=== PATIENT | female | born 1990 | race Caucasian/White ===

== ENCOUNTER 2017-10-31 08:20 | Day surgery (SDC) | payer SELFPAY ==
[~2017-10-31 08:20] MED LIST: Acetaminophen/HYDROcodone 325-5 MG Tab PO PRN; Bupivacaine 0.25%/EPINEPHrine 1:200,000 10 ML SDV INJECT ONE; Bupivacaine 25%/EPINEPHrine/PF 30 ML ONE; EPINEPHrine 1 MG/ML SDV ONE; Gentamicin 40 MG/ML 2 ML Vial ONE; Lactated Ringers 1,000 ML IV SCH; ceFAZolin 1 GM Vial ONE; ceFAZolin 2 GM in Premix Bag 1 BAG IV ONE
--- NOTE | 2017-10-31 09:08 | PCM.PREANE ---
Preanesthetic Assessment - Anesthesia/Transfusion/Family Hx Anesthesia History: No Prior Anesthesia Family History of Anesthesia Reaction: No Transfusion History: No Prior Transfusion(s) - Review of Systems General: No Symptoms Pulmonary: No Symptoms Cardiovascular: No Symptoms Gastrointestinal: No Symptoms Neurological: No Symptoms Other: Reports: None - Physical Assessment Height: 1.7 m Weight: 57.153 kg ASA Class: 2 Mental Status: Alert & Oriented x3 Dentition: Reports: Normal Dentition ROM/Head Extension: Full Lungs: Clear to Auscultation, Normal Respiratory Effort Cardiovascular: Regular Rate, Regular Rhythm - Lab Values: Laboratory Last Values Urine HCG, Qual NEGATIVE (NEGATIVE) 10/31/17 08:33 - Allergies Allergies/Adverse Reactions: Allergies Allergy/AdvReac Type Severity Reaction Status Date / Time sulfamethoxazole Allergy Rash Verified 10/25/17 09:02 [From Bactrim] trimethoprim [From Bactrim] Allergy Rash Verified 10/25/17 09:02 - Blood Blood Available: No - Anesthesia Plan Pre-Op Medication Ordered: None - Acknowledgements Anesthesia Type Planned: General Anesthesia Pt an Appropriate Candidate for the Planned Anesthesia: Yes Alternatives and Risks of Anesthesia Discussed w Pt/Guardian: Yes Pt/Guardian Understands and Agrees with Anesthesia Plan: Yes PreAnesthesia Questionnaire HEENT History: Reports: Other (See Below) Other HEENT History: wears glasses/contacts Psychiatric History: Reports: Anxiety, Bipolar, Depression - Past Surgical History Head Surgeries/Procedures: Reports: None - SUBSTANCE USE Smoking Status *Q: Never Smoker Recreational Drug Use History: No - HOME MEDS Home Medications: Home Meds ARIPiprazole [Abilify] 5 mg PO DAILY 10/25/17 [History] Levonorgestrel-Ethin Estradiol [Aviane-28 Tablet] 1 tab PO DAILY 10/25/17 [ History] - CURRENT (IN HOUSE) MEDS Current Meds: Current Medications Hydrocodone Bitart/Acetaminophen ([place] 325-5 Mg) 1 tab PO Q4H PRN PRN Reason: Pain Lactated Ringer's (Ringers, Lactated) 1,000 mls @ 125 mls/hr IV ASDIRECTED BRANT Discontinued Medications Bacitracin (Bacitracin) Confirm Administered Dose 50,000 units .ROUTE .STK-MED ONE Stop: 10/31/17 07:39 Bupivacaine HCl/Epinephrine Bitart (Marcaine 0.25%/Epinephrine 1:200,000) 10 ml INJECT ONETIME ONE Stop: 10/31/17 08:01 Cefazolin Sodium (Ancef) Confirm Administered Dose 1 gm .ROUTE .STK-MED ONE Stop: 10/31/17 07:39 Epinephrine HCl (Adrenalin) Confirm Administered Dose 1 mg .ROUTE .STK-MED ONE Stop: 10/31/17 07:39 Gentamicin Sulfate (Gentamicin) Confirm Administered Dose 80 mg .ROUTE .STK-MED ONE Stop: 10/31/17 07:39 Cefazolin Sodium/Dextrose 2 gm (/ Premix) 50 mls @ 100 mls/hr IV ONETIME ONE Stop: 10/31/17 08:29 Bupivacaine HCl/Epinephrine Bitart (Sensorc Mpf 0.25%-Epi [id number]) Confirm Administered Dose 30 mls @ as directed .ROUTE .STK-MED ONE Stop: 10/31/17 07:18
[2017-10-31] MEDS ORDERED: Rocuronium 10 MG/ML 10 ML Syringe ONE (10:39)
[2017-10-31] MEDS ORDERED: fentaNYL 100 MCG/2 ML SDV ONE ×2 (10:39→11:44)
[2017-10-31] MEDS ORDERED: Ondansetron 4 MG/2 ML SDV ONE ×2 (10:39→10:40)
[2017-10-31] MEDS ORDERED: Propofol 200 MG/20 ML SDV ONE (10:39)
[2017-10-31] MEDS ORDERED: Midazolam 1 MG/ML 2 ML SDV ONE (10:39)
[2017-10-31] MEDS ORDERED: Dexamethasone 4 MG/ML 5 ML MDV ONE (10:40)
[2017-10-31] MEDS ORDERED: Ketorolac 30 MG/ML SDV ONE (10:40)
[2017-10-31] MEDS ORDERED: Sugammadex Sodium 200 MG/2 ML VIAL ONE (10:46)
[2017-10-31] MEDS ORDERED: ceFAZolin 1 GM Vial ONE (10:48)
[2017-10-31] MEDS ORDERED: Sodium Chloride 0.9% 20 ML ONE (10:48)
[2017-10-31] MEDS ORDERED: HYDROmorphone 2 MG/ML SDV ONE (12:44)
--- NOTE | 2017-10-31 13:59 | PCM.POSTAN ---
POST ANESTHESIA ASSESSMENT - MENTAL STATUS Mental Status: Alert - VITAL SIGNS Pulse Rate: 84 SaO2: 99 Resp Rate: 16 Blood Pressure: 113/68 Temperature: 36.8 C - RESPIRATORY Respiratory Status: Respiratory Rate WNL - CARDIOVASCULAR CV Status: Pulse Rate WNL - GASTROINTESTINAL GI Status: No Symptoms - PAIN Pain Score: 2 (sore. Received 1mg Dilaudid upon arrival.) - POST OP HYDRATION Hydration Status: Adequate & Stable (Doing well. Ready for transfer to .)
--- NOTE | 2017-10-31 14:40 | PCM48HPAN ---
Post Anesthesia Note - EVALUATION WITHIN 48HRS OF ANESTHETIC Vital Signs in Normal Range: Yes Patient Participated in Evaluation: Yes Respiratory Function Stable: Yes Airway Patent: Yes Cardiovascular Function Stable: Yes Hydration Status Stable: Yes Pain Control Satisfactory: Yes Nausea and Vomiting Control Satisfactory: Yes Mental Status Recovered: Yes Pulse Rate: 84 SaO2: 98 Resp Rate: 16 Temperature: 36.8 C Blood Pressure: 113/68 Pulse Rate: 84 - COMMENTS/OBSERVATIONS Free Text/Narrative:: Doing well. Ready for discharge.
--- NOTE | 2017-10-31 16:57 | PCM.OPNOTE ---
- General Post-Op/Procedure Note Date of Surgery/Procedure: 10/31/17 Operative Procedure(s): bilateral silicone submuscular breast augmentation with bilateral breast lift Pre Op Diagnosis: cosmetic Post-Op Diagnosis: Same Anesthesia Technique: Local, MAC Primary Surgeon: Frida Oglesby Structural Drafter: Glenny Costello Role of Structural Drafter: retraction prepping draping and closure assitance Complications: None Condition: Good Free Text/Narrative:: Intake & Output 10/31/17 10/31/17 10/31/17 07:59 15:59 23:59 Intake Total 1600 Balance 1600
--- NOTE | 2017-11-08 16:03 | OR ---
SURGEON: ARMIN DIXON MD DATE OF PROCEDURE: 10/31/2017 PREOPERATIVE DIAGNOSIS: Cosmetic. POSTOPERATIVE DIAGNOSIS: Cosmetic. PROCEDURE: Bilateral silicone submuscular breast augmentation with bilateral breast lift. SOIL CONSERVATION AIDE: CAIT Newberry. ANESTHESIA: General ET tube with local anesthesia. REASON FOR AND ROLE OF SOIL CONSERVATION AIDE: Retraction, prepping, draping, positioning and closure assistance. INDICATIONS: Ms. Monk is a 27-year-old female seen today in evaluation for bilateral breast augmentation and lift. The left needs the lift more so than the right and risks and benefits of differential list were discussed with her. Risks were including, but not limited to, bleeding, infection, damage to underlying or overlying structures, possible need for future interventions, possible scarring. DESCRIPTION OF PROCEDURE: After informed consent was obtained and placed on the chart, the patient was brought to the operating theater and laid in supine position. After adequate general anesthesia was obtained, the area was prepped and draped, and a time-out was completed to confirm side and site. Attention was then paid to dissection of the submuscular pocket in bilateral breast. A small 5 cm incision in the inframammary fold was designed and dissection was carried into the submuscular plane. The muscle was transected inferiorly and elevated to develop a pocket. During this, meticulous hemostasis was obtained and once the pocket was adequately developed, 3-0 PDS sutures were used to secure the pocket inferior and lateral borders. The area was then copiously irrigated with triple antibiotic solution in a standard fashion and packed with epinephrine-soaked laps. The laps were then removed and meticulous hemostasis was again ensured. After again irrigating with triple antibiotic solution, the 397 mL implants were placed using a Mayer funnel and no-touch technique. Once adequately placed, the skin was closed at the inframammary fold using a deep 3-0 Monocryl Stratafix suture for the deep tissue, dermis, and a running 4-0 Stratafix subcuticular for the skin. The symmetry procedure was completed on the opposite side in all standard and described fashion. Once the implants were placed bilaterally, the patient was sat up and good symmetry of the position of the implant was appreciated. At that point, a designed lift was undertaken on the right to elevate the nipple-areolar complex, and on the left to reorient the significantly drooping breast tissue here in a vertical lift fashion. Once adequately designed and stapled in place, the patient was then laid back into the supine position and the borders of this tacking were marked. The angle were removed and a smooth contour for the incisions was designed and planned. Excision of the excess skin on the right breast was completed for a periareolar lift. Once this was completed and stapled in place, the wound was then closed using deep 3-0 Stratafix suture and a running 4-0 Stratafix suture for the skin. This was completed in the right breast was dressed with Steri- Strips. Attention was then paid to the left breast and a significantly more involved lift was completed here using a superior medial pedicle and a vertical style lift. The excess skin was removed and the superior medial pedicle was designed while isolating the nipple-areolar complex on this. This was rotated superiorly into place and a small amount of breast tissue was removed at the inferior pole of the left breast to allow appropriate closure and coning. Once adequately removed and stapled in place, meticulous hemostasis was obtained prior to closure and the wounds were closed with a deep 3-0 Stratafix Monocryl suture for the dermis and a running 4-0 Stratafix Monocryl suture for the skin. This wound was then dressed with Steri-Strips and the patient was again sat up, symmetry was ensured in appreciated as well as measure. The wounds were dressed with Steri-Strips, fluffs, and the patient was placed in a compression bra. The patient tolerated this well. All counts needles were correct at the end of the case. Implant and information: On the left is the Natrelle style 15-397 silicone- filled breast implant, reference #[id number], serial #[id number]. On the right reference #[id number] and serial #[id number]. FOLLOWUP INSTRUCTIONS: The patient will see us tomorrow in clinic or sooner if any problems, questions, or concerns. HEGGTDARLING / ELLIOT /[id number]
== END 2017-10-31 14:52 | disposition home or self-care (01) ==
LOC: MW.SDS 08:20
PROVIDERS: ATTEND Plastic Surgery
DX: Z41.1 Encounter for cosmetic surgery (principal); Z88.1 Allergy status to other antibiotic agents; Z79.899 Other long term (current) drug therapy
CPT/HCPCS: 19316; 19325; 81025; C1789; J0131; J0171; J0690; J1100; J1170; J1580; J1885; J2250; J2405; J2704; J3010; J3490; J7120; 00402

== ENCOUNTER 2018-04-07 09:53 | Emergency (ER) | payer BC ==
--- NOTE | 2018-04-07 09:58 | EDM.PDOC ---
ED HPI GENERAL MEDICAL PROBLEM - General Chief Complaint: General Stated Complaint: flu Time Seen by Provider: 04/07/18 09:56 Source of Information: Reports: Patient History Limitations: Reports: No Limitations - History of Present Illness INITIAL COMMENTS - FREE TEXT/NARRATIVE: HISTORY AND PHYSICAL: History of present illness: Condition thank 27-year-old female who presents to the ED today with concerns of cough, sore throat, nasal congestion, and headache. She states she has had a fever about 102. She denies ear pain, sinus tenderness, difficulties breathing, nausea, vomiting, abdominal pain, pelvic pain, difficulties urinating, or any other GI or symptoms. Patient states her symptoms started last night but she has not taken any medications because she just found out 3 weeks ago that she was . She will follow-up with Dr. Walker in a few weeks with her first appointment for this. She denies any complications related to her . He denies any health concerns. Review of systems: As per history of present illness and below otherwise all systems reviewed and negative. Past medical history: As per history of present illness and as reviewed below otherwise noncontributory. Surgical history: As per history of present illness and as reviewed below otherwise noncontributory. Social history: See social history for further information Family history: As per history of present illness and as reviewed below otherwise noncontributory. Physical exam: General: Well-developed and well-nourished 27-year-old female. Alert and oriented. Nontoxic appearing and in no acute distress. HEENT: Atraumatic, normocephalic, pupils equal and reactive bilaterally, negative for conjunctival pallor or scleral icterus, mucous membranes moist, TMs normal bilaterally, posterior oropharynx is erythematous with exudate, neck supple, nontender, trachea midline. No drooling or trismus noted. No meningeal signs. No hot potato voice noted. Lungs: Clear to auscultation, breath sounds equal bilaterally, chest nontender. Heart: S1S2, regular rate and rhythm without overt murmur Abdomen: Soft, nondistended, nontender. Negative for masses or hepatosplenomegaly. Negative for costovertebral tenderness. Pelvis: Stable nontender. Genitourinary: Deferred. Rectal: Deferred. Skin: Intact, warm, dry. No lesions or rashes noted. Extremities: Atraumatic, negative for cords or calf pain. Neurovascular unremarkable. Neuro: Awake, alert, oriented. Cranial nerves II through XII unremarkable. Cerebellum unremarkable. Motor and sensory unremarkable throughout. Exam nonfocal. Notes: Patient is positive for influenza and is in the window for Tamiflu. Supportive care measures were reviewed and discussed. Offered to treat others in the house and rx provided for her and son. Diagnostics: Influenza, Rapid strep Therapeutics: None Prescription: Tamiflu Impression: 1. Influenza A Plan: 1. Start a vitamin if you haven't already. Choose one that has folic acid and iron. Use cough drops as needed for throat discomfort. Drink plenty of fluids to stay hydrated. 2. Start your Tamiflu today. Standard contact precautions such as good handwashing, avoid sharing eating and drinking utensils, and covering her mouth while coughing. Influenza is contagious. You can use nasal saline for nasal congestion relief. 3. Use Tylenol as needed for pain/fever; this is very safe in . 3. Follow up with your primary care provider. Establish with an OBGYN for your needs. 4. Return to the ED as needed and as discussed. Definitive disposition and diagnosis as appropriate pending reevaluation and review of above. back Pain Score (Numeric/FACES): 8 - Related Data Allergies Allergy/AdvReac Type Severity Reaction Status Date / Time sulfamethoxazole Allergy Rash Verified 02/14/18 08:38 [From Bactrim] trimethoprim [From Bactrim] Allergy Rash Verified 02/14/18 08:38 Home Meds: Home Meds ARIPiprazole [Abilify] 5 mg PO DAILY 10/25/17 [History] Past Medical History HEENT History: Reports: Other (See Below) Other HEENT History: wears glasses/contacts Psychiatric History: Reports: Anxiety, Bipolar, Depression - Past Surgical History Head Surgeries/Procedures: Reports: None Social & Family History - Family History Family Medical History: Noncontributory ED ROS GENERAL - Review of Systems Review Of Systems: ROS reveals no pertinent complaints other than HPI. ED EXAM, GENERAL - Physical Exam Exam: See Below (See dictation) Course - Vital Signs Last Recorded V/S: Last Vital Signs Temp 98.5 F 04/07/18 10:11 Pulse 133 H 04/07/18 10:11 Resp 18 02/03/19 10:11 BP 124/76 04/07/18 10:11 Pulse Ox 97 04/07/18 10:11 - Orders/Labs/Meds Orders: Active Orders 24 hr Category Date Time Status CULTURE STREP A CONFIRMATION [] Stat Lab 04/07/18 10:23 Results STREP SCRN A RAPID W CULT CONF [RM] Stat Lab 04/07/18 10:23 Results Departure - Departure Time of Disposition: 10:51 Disposition: Home, Self-Care 01 Condition: Good Clinical Impression: Influenza A - Discharge Information Instructions: Influenza, Adult, Eirg-ss-Favu Referrals: PCP,Unknown [Primary Care Provider] - Forms: ED Department Discharge Additional Instructions: The following information is given to patients seen in the emergency department who are being discharged to home. This information is to outline your options for follow-up care. We provide all patients seen in our emergency department with a follow-up referral. The need for follow-up, as well as the timing and circumstances, are variable depending upon the specifics of your emergency department visit. If you don't have a primary care physician on staff, we will provide you with a referral. We always advise you to contact your personal physician following an emergency department visit to inform them of the circumstance of the visit and for follow-up with them and/or the need for any referrals to a consulting specialist. The emergency department will also refer you to a specialist when appropriate. This referral assures that you have the opportunity for follow-up care with a specialist. All of these measure are taken in an effort to provide you with optimal care, which includes your follow-up. Under all circumstances we always encourage you to contact your private physician who remains a resource for coordinating your care. When calling for follow-up care, please make the office aware that this follow-up is from your recent emergency room visit. If for any reason you are refused follow-up, please contact the [facility] Emergency Department at and asked to speak to the emergency department charge nurse. [facility] [address] [place] [id number] [address] [facility] [address] [place] [address] 1. Start a vitamin if you haven't already. Choose one that has folic acid and iron. Use cough drops as needed for throat discomfort. Drink plenty of fluids to stay hydrated. 2. Start your Tamiflu today. Standard contact precautions such as good handwashing, avoid sharing eating and drinking utensils, and covering her mouth while coughing. Influenza is contagious. You can use nasal saline for nasal congestion relief. 3. Use Tylenol as needed for pain/fever; this is very safe in . 3. Follow up with your primary care provider. Establish with an OBGYN for your needs. 4. Return to the ED as needed and as discussed. - My Orders Last 24 Hours: My Active Orders 04/07/18 10:23 CULTURE STREP A CONFIRMATION [RM] Stat STREP SCRN A RAPID W CULT CONF [RM] Stat - Assessment/Plan Last 24 Hours: My Active Orders 04/07/18 10:23 CULTURE STREP A CONFIRMATION [] Stat STREP SCRN A RAPID W CULT CONF [] Stat
== END 2018-04-07 11:07 | disposition home or self-care (01) ==
LOC: MW.ED 09:53
DX: J10.1 Influenza due to other identified influenza virus with other respiratory manifestations (principal); F31.9 Bipolar disorder, unspecified; F41.9 Anxiety disorder, unspecified; Z88.2 Allergy status to sulfonamides; Z79.899 Other long term (current) drug therapy
CPT/HCPCS: 87081; 87804; 87880-QW; 99283

== ENCOUNTER 2018-11-17 15:46 | Inpatient (IN) | payer BC ==
[2018-11-17] MEDS ORDERED: Misoprostol 200 MCG Tab PO PRN (17:16)
[2018-11-17] MEDS ORDERED: Sodium Chloride 0.9% 10 ML Syringe FLUSH PRN (17:16)
[2018-11-17] MEDS ORDERED: Sodium Chloride 0.9% 2.5 ML Syringe FLUSH PRN (17:16)
[2018-11-17] MEDS ORDERED: Water For Irrigation,Sterile 1,000 ML Container IRR PRN (17:16)
[2018-11-17] MEDS ORDERED: Lidocaine 1% 50 ML MDV INJECT PRN (17:16)
[2018-11-17] MEDS ORDERED: Sodium Chloride 0.9% 10 ML SDV IV PRN (17:16)
[2018-11-17] MEDS ORDERED: Methylergonovine 0.2 MG/1 ML Amp IM PRN (17:16)
[2018-11-17] MEDS ORDERED: Nalbuphine 10 MG/1 ML Vial IVPUSH PRN (17:16)
[2018-11-17] MEDS ORDERED: Butorphanol 1 MG/ML SDV IVPUSH PRN (17:16)
[2018-11-17] MEDS ORDERED: Tranexamic Acid 1,000 MG in Sodium Chloride 0.9% 100 ML IV PRN (17:16)
[2018-11-17] MEDS ORDERED: Carboprost Tromethamine 250 MCG/1 ML Amp IM PRN (17:16)
[2018-11-17] MEDS ORDERED: Oxytocin/0.9 % Sodium Chloride 30 UNIT/500 ML BAG IV SCH ×2 (17:30→19:00)
--- NOTE | 2018-11-17 17:37 | PCM.LDHP ---
L&D History of Present Illness - General Date of Service: 11/17/18 Admit Problem/Dx: Patient Status Order with Admit Dx/Problem 11/17/18 17:16 Patient Status [ADT] Routine Admission Diagnosis/Problem Admission Diagnosis/Problem 11/17/18 17:32 28 yo EDC 11/25/2018 39 2/7wks gestation active labor, O+, RI, GBS pos. Source of Information: Patient History Limitations: Reports: No Limitations - History of Present Illness Improves with: Reports: None Worsens with: Reports: None Associated Symptoms: Reports: N - Related Data Allergies/Adverse Reactions: Allergies Allergy/AdvReac Type Severity Reaction Status Date / Time sulfamethoxazole Allergy Rash Verified 02/14/18 08:38 [From Bactrim] trimethoprim [From Bactrim] Allergy Rash Verified 02/14/18 08:38 Home Medications: Home Meds ARIPiprazole [Abilify] 5 mg PO DAILY 10/25/17 [History] Past Medical History HEENT History: Reports: Other (See Below) Other HEENT History: 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: Psychiatric History: Reports: Anxiety, Bipolar, Depression - Infectious Disease History Infectious Disease History: Reports: Chicken Pox - Past Surgical History Head Surgeries/Procedures: Reports: None HEENT Surgical History: Reports: Oral Surgery Other HEENT Surgeries/Procedures: wisdom teeth 2011 Female Surgical History: Reports: Breast Implant Social & Family History - Family History Family Medical History: Noncontributory - Tobacco Use Smoking Status *Q: Never Smoker Second Hand Smoke Exposure: No - Caffeine Use Caffeine Use: Reports: Coffee - Recreational Drug Use Recreational Drug Use: No H&P Review of Systems - Review of Systems: Review Of Systems: See Below General: Reports: No Symptoms HEENT: Reports: No Symptoms Pulmonary: Reports: No Symptoms Cardiovascular: Reports: No Symptoms Gastrointestinal: Reports: No Symptoms Genitourinary: Reports: No Symptoms Musculoskeletal: Reports: No Symptoms Skin: Reports: No Symptoms Psychiatric: Reports: No Symptoms Neurological: Reports: No Symptoms Hematologic/Lymphatic: Reports: No Symptoms Immunologic: Reports: No Symptoms L&D Exam - Exam Exam: See Below - Vital Signs Weight: 83.461 kg - OB Specific Contraction Intensity: Moderate to Strong Movement: Active Heart Tones: Present Heart Tones per Min: 125 Heart Rate (FHR) Variability: Moderate (6-25 bmp) Presentation: Vertex - Lawrence Score Lawrence Score Cervix Position: Midposition Lawrence Score Consistency: Soft Lawrence Score Effacement: 51-70% Lawrence Score Dilation: 3-4 cm Lawrence Score Infant's Station: -2 Lawrence Score Total: 8 - Exam General: Alert, Oriented, Cooperative, Mild Distress HEENT: Hearing Intact Lungs: Normal Respiratory Effort GI/Abdominal Exam: Soft, Non-Tender Rectal Exam: Deferred Genitourinary: Cervical dilitation Back Exam: Normal Inspection, Full Range of Motion Extremities: Normal Inspection, Normal Range of Motion, Non-Tender, No Pedal Edema Skin: Warm, Dry, Intact Neurological: Cranial Nerves Intact, Strength Equal Bilateral, Normal Speech, Normal Tone Psychiatric: Alert, Normal Affect, Normal Mood - Problem List (1) Supervision of normal IUP (intrauterine ) in multigravida SNOMED Code(s): 573637259, 810140523, [id number] ICD Code: Z34.80 - ENCOUNTER FOR SUPRVSN OF NORMAL , UNSP TRIMESTER Status: Acute Current Visit: Yes Qualifiers: Trimester: third trimester Qualified Code(s): Z34.83 - Encounter for supervision of other normal , third trimester Problem List Initiated/Reviewed/Updated: Yes Orders Last 24hrs: Active Orders 24 hr Category Date Time Status Patient Status [ADT] Routine ADT 11/17/18 17:16 Active Heart Tones [RC] CONTINUOUS Care 11/17/18 17:16 Active Non Stress Test [RC] PER UNIT ROUTINE Care 11/17/18 17:16 Active May Shower [RC] ASDIRECTED Care 11/17/18 17:16 Active Notify Provider [RC] PRN Care 11/17/18 17:16 Active Up ad Joan [RC] ASDIRECTED Care 11/17/18 17:16 Active Vaginal Exam [RC] PRN Care 11/17/18 17:16 Active Vital Signs [RC] PER UNIT ROUTINE Care 11/17/18 17:16 Active Regular Diet [DIET] Diet 11/17/18 Dinner Active CBC W/O DIFF,HEMOGRAM [HEME] Routine Lab 11/17/18 17:16 Ordered TYPE AND SCREEN [BBK] Routine Lab 11/17/18 17:16 Ordered Butorphanol [Stadol] Med 11/17/18 17:16 Active 1 mg IVPUSH Q1H PRN Carboprost Tromethamine [Hemabate DS] Med 11/17/18 17:16 Active 250 mcg IM ASDIRECTED PRN Lactated Ringers [Ringers, Lactated] 1,000 ml Med 11/17/18 17:30 Active IV ASDIRECTED Lidocaine 1% [Xylocaine 1%] Med 11/17/18 17:16 Active 50 ml INJECT ONETIME PRN Methylergonovine [Methergine] Med 11/17/18 17:16 Active 0.2 mg IM ASDIRECTED PRN Nalbuphine [Nubain] Med 11/17/18 17:16 Active 10 mg IVPUSH Q1H PRN Oxytocin/0.9 % Sodium Chloride [Oxytocin 30 Unit/500 ML Med 11/17/18 17:30 Active -NS] 30 unit in 500 ml IV TITRATE Sodium Chloride 0.9% [Normal Saline] Med 11/17/18 17:16 Active 10 ml IV ASDIRECTED PRN Sodium Chloride 0.9% [Saline Flush] Med 11/17/18 17:16 Active 10 ml FLUSH ASDIRECTED PRN Sodium Chloride 0.9% [Saline Flush] Med 11/17/18 17:16 Active 2.5 ml FLUSH ASDIRECTED PRN Tranexamic Acid [Cyklokapron] 1,000 mg Med 11/17/18 17:16 Active Sodium Chloride 0.9% [Normal Saline] 100 ml IV ONETIME Water For Irrigation,Sterile [Sterile Water for Med 11/17/18 17:16 Active Irrigation] 1,000 ml IRR ASDIRECTED PRN miSOPROStol [Cytotec] Med 11/17/18 17:16 Active 200 mcg PO ONETIME PRN Scalp Electrode [WOMSER] Per Unit Routine Oth 11/17/18 17:16 Ordered Peripheral IV Insertion Adult [OM.PC] Routine Oth 11/17/18 17:16 Ordered Resuscitation Status Routine Resus Stat 11/17/18 17:16 Ordered Medication Orders Butorphanol Tartrate (Stadol) 1 mg IVPUSH Q1H PRN PRN Reason: Pain Carboprost Tromethamine (Hemabate Ds) 250 mcg IM ASDIRECTED PRN PRN Reason: Post Hemorrhage Lactated Ringer's (Ringers, Lactated) 1,000 mls @ 150 mls/hr IV ASDIRECTED BRANT Oxytocin/Sodium Chloride (Oxytocin 30 Unit/500 Ml-Ns) 30 unit in 500 mls @ 500 mls/hr IV TITRATE BRANT Tranexamic Acid 1,000 mg/ (Sodium Chloride) 110 mls @ 660 mls/hr IV ONETIME PRN PRN Reason: Bleeding Lidocaine HCl (Xylocaine 1%) 50 ml INJECT ONETIME PRN PRN Reason: Laceration repair Methylergonovine Maleate (Methergine) 0.2 mg IM ASDIRECTED PRN PRN Reason: Post Hemorrhage Misoprostol (Cytotec) 200 mcg PO ONETIME PRN PRN Reason: Post Hemorrhage Nalbuphine HCl (Nubain) 10 mg IVPUSH Q1H PRN PRN Reason: Pain (severe 7-10) Sodium Chloride (Saline Flush) 10 ml FLUSH ASDIRECTED PRN PRN Reason: Keep Vein Open Sodium Chloride (Saline Flush) 2.5 ml FLUSH ASDIRECTED PRN PRN Reason: Keep Vein Open Sodium Chloride (Normal Saline) 10 ml IV ASDIRECTED PRN PRN Reason: IV Use Sterile Water (Sterile Water For Irrigation) 1,000 ml IRR ASDIRECTED PRN PRN Reason: delivery Assessment/Plan Comment:: Labor A: 28 yo EDC 11/25/2018 39 2/7wks gestation active labor, O+, RI, GBS pos. P: Admit, pain mngt prn, may start pitocin prn if not progressing, anticipate . Dr Walker updated on pt status.
[2018-11-17] MEDS: Lactated Ringers 1,000 ML IV SCH ×2 (18:50→19:30)
[2018-11-17] MEDS ORDERED: Terbutaline 1 MG/ML SDV SUBCUT PRN (18:54)
--- NOTE | 2018-11-17 19:02 | PCM.PREANE ---
Preanesthetic Assessment - Anesthesia/Transfusion/Family Hx Anesthesia History: Prior Anesthesia Without Reaction Family History of Anesthesia Reaction: No Transfusion History: No Prior Transfusion(s) - Review of Systems General: No Symptoms Pulmonary: No Symptoms Cardiovascular: No Symptoms Gastrointestinal: No Symptoms Neurological: No Symptoms Other: Reports: None - Physical Assessment Height: 5 ft 7 in Weight: 83.461 kg ASA Class: 2 Mental Status: Alert & Oriented x3 Airway Class: Mallampati = 2 Dentition: Reports: Normal Dentition Thyro-Mental Finger Breadths: 3 Mouth Opening Finger Breadths: 3 ROM/Head Extension: Full Lungs: Clear to Auscultation, Normal Respiratory Effort Cardiovascular: Regular Rate, Regular Rhythm - Lab Values: Laboratory Last Values WBC 11.01 K/uL (4.0-11.0) H 11/17/18 17:36 RBC 4.54 M/uL (4.30-5.90) 11/17/18 17:36 Hgb 10.8 g/dL (12.0-16.0) L 11/17/18 17:36 Hct 35.3 % (36.0-46.0) L 11/17/18 17:36 MCV 77.8 fL (80.0-98.0) L 11/17/18 17:36 MCH 23.8 pg (27.0-32.0) L 11/17/18 17:36 MCHC 30.6 g/dL (31.0-37.0) L 11/17/18 17:36 RDW Std Deviation 44.7 fl (28.0-62.0) 11/17/18 17:36 RDW Coeff of Giovanni 16 % (11.0-15.0) H 11/17/18 17:36 Plt Count 237 K/uL (150-400) 11/17/18 17:36 MPV 10.60 fL (7.40-12.00) 11/17/18 17:36 Nucleated RBC % 0.0 /100WBC 11/17/18 17:36 Nucleated RBCs # 0 K/uL 11/17/18 17:36 Blood Type O POSITIVE 11/17/18 17:36 Antibody Screen NEGATIVE 11/17/18 17:36 - Allergies Allergies/Adverse Reactions: Allergies Allergy/AdvReac Type Severity Reaction Status Date / Time sulfamethoxazole Allergy Rash Verified 02/14/18 08:38 [From Bactrim] trimethoprim [From Bactrim] Allergy Rash Verified 02/14/18 08:38 - Acknowledgements Anesthesia Type Planned: Epidural Pt an Appropriate Candidate for the Planned Anesthesia: Yes Alternatives and Risks of Anesthesia Discussed w Pt/Guardian: Yes Pt/Guardian Understands and Agrees with Anesthesia Plan: Yes PreAnesthesia Questionnaire HEENT History: Reports: Other (See Below) Other HEENT History: wears glasses/contacts Cardiovascular History: Reports: None Respiratory History: Reports: None Gastrointestinal History: Reports: GERD Genitourinary History: Reports: None [employer] History: Reports: : 3 Para: 1 LMP (Approximate): Musculoskeletal History: Reports: None Neurological History: Reports: None Psychiatric History: Reports: Anxiety, Bipolar, Depression Endocrine/Metabolic History: Reports: None Hematologic History: Reports: Anemia Immunologic History: Reports: None Oncologic (Cancer) History: Reports: None Dermatologic History: Reports: None - Infectious Disease History Infectious Disease History: Reports: Chicken Pox - Past Surgical History Head Surgeries/Procedures: Reports: None HEENT Surgical History: Reports: Oral Surgery Other HEENT Surgeries/Procedures: wisdom teeth 2011 Female Surgical History: Reports: Breast Implant - SUBSTANCE USE Smoking Status *Q: Never Smoker Second Hand Smoke Exposure: No Recreational Drug Use History: No - HOME MEDS Home Medications: Home Meds ARIPiprazole [Abilify] 5 mg PO DAILY 10/25/17 [History] - CURRENT (IN HOUSE) MEDS Current Meds: Current Medications Butorphanol Tartrate (Stadol) 1 mg IVPUSH Q1H PRN PRN Reason: Pain Carboprost Tromethamine (Hemabate Ds) 250 mcg IM ASDIRECTED PRN PRN Reason: Post Hemorrhage Lactated Ringer's (Ringers, Lactated) 1,000 mls @ 150 mls/hr IV ASDIRECTED BRANT Last Admin: 11/17/18 18:50 Dose: 999 mls/hr Oxytocin/Sodium Chloride (Oxytocin 30 Unit/500 Ml-Ns) 30 unit in 500 mls @ 500 mls/hr IV TITRATE BRANT Tranexamic Acid 1,000 mg/ (Sodium Chloride) 110 mls @ 660 mls/hr IV ONETIME PRN PRN Reason: Bleeding Oxytocin/Sodium Chloride (Oxytocin 30 Unit/500 Ml-Ns) 30 unit in 500 mls @ 2 mls/hr IV TITRATE BRANT; Protocol Lidocaine HCl (Xylocaine 1%) 50 ml INJECT ONETIME PRN PRN Reason: Laceration repair Methylergonovine Maleate (Methergine) 0.2 mg IM ASDIRECTED PRN PRN Reason: Post Hemorrhage Misoprostol (Cytotec) 200 mcg PO ONETIME PRN PRN Reason: Post Hemorrhage Nalbuphine HCl (Nubain) 10 mg IVPUSH Q1H PRN PRN Reason: Pain (severe 7-10) Sodium Chloride (Saline Flush) 10 ml FLUSH ASDIRECTED PRN PRN Reason: Keep Vein Open Sodium Chloride (Saline Flush) 2.5 ml FLUSH ASDIRECTED PRN PRN Reason: Keep Vein Open Sodium Chloride (Normal Saline) 10 ml IV ASDIRECTED PRN PRN Reason: IV Use Sterile Water (Sterile Water For Irrigation) 1,000 ml IRR ASDIRECTED PRN PRN Reason: delivery Terbutaline Sulfate (Brethine) 0.25 mg SUBCUT ASDIRECTED PRN PRN Reason: Tacysystole
--- NOTE | 2018-11-17 23:02 | PCM.DEL ---
L & D Note - General Info Date of Service: 11/17/18 Mother's Due Date: 11/25/18 - Delivery Note Labor: Spontaneous Delivery Outcome: Livebirth Infant Delivery Method: Spontaneous Vaginal Delivery-Single Delivery Mode: Spontaneous Presentation: Vertex Nuchal Cord: None Anesthesia Type: Epidural Amniotic Fluid Description: Clear Episiotomy Type: None Laceration: 2nd Degree Placenta: Intact, Spontaneous Cord: 3 Vessels Estimated Blood Loss: 200 Resuscitation Needed: No [place]: Stimulated Score 1 min: 8 Score 5 min: 9 Second Stage Interventions: Reports: Pushing, Pulls Own Legs Back Delivery Comments (Free Text/Narrative):: of viable male. Head delivered with good pushing, shoulders and body followed easily. with spont cry placed on mothers abdomen with RN at for evaluation. Delayed cord clamping, pitocin to IVF, cord clamped and cut. Placenta delivered via manual extraction grossly intact. Inspection noted 2nd deg perineal lac that i repaired in the usual manor with a 3-0 chiquis. EBL 200cc. APGARS 8/9, Wt: 7lb 13oz. Mother and baby in stable condition bonding well. Induction Criteria - Augmentation Estimated Pelvis: Reports: Adequate Weight Estimated:: Reports: AGA Reassuring Monitoring Strip: Yes Absence of Tachy Systole: Yes - General Info Date of Service: 11/17/18 Admission Dx/Problem (Free Text): Patient Status Order with Admit Dx/Problem 11/17/18 17:16 Patient Status [ADT] Routine Admission Diagnosis/Problem Admission Diagnosis/Problem 11/17/18 17:32 28 yo EDC 11/25/2018 39 2/7wks gestation active labor, O+, RI, GBS pos. Functional Status: Reports: Pain Controlled, Tolerating Diet - Review of Systems General: Reports: No Symptoms HEENT: Reports: No Symptoms Pulmonary: Reports: No Symptoms Cardiovascular: Reports: No Symptoms Gastrointestinal: Reports: No Symptoms Genitourinary: Reports: No Symptoms Musculoskeletal: Reports: No Symptoms Skin: Reports: No Symptoms Neurological: Reports: No Symptoms Psychiatric: Reports: No Symptoms - Patient Data Weight - Most Recent: 83.461 kg Lab Results Last 24 Hours: Laboratory Results - last 24 hr 11/17/18 11/17/18 Range/Units 17:36 17:36 WBC 11.01 H (4.0-11.0) K/uL RBC 4.54 (4.30-5.90) M/uL Hgb 10.8 L (12.0-16.0) g/dL Hct 35.3 L (36.0-46.0) % MCV 77.8 L (80.0-98.0) fL MCH 23.8 L (27.0-32.0) pg MCHC 30.6 L (31.0-37.0) g/dL RDW Std Deviation 44.7 (28.0-62.0) fl RDW Coeff of Giovanni 16 H (11.0-15.0) % Plt Count 237 (150-400) K/uL MPV 10.60 (7.40-12.00) fL Nucleated RBC % 0.0 /100WBC Nucleated RBCs # 0 K/uL Blood Type O POSITIVE Antibody Screen NEGATIVE Med Orders - Current: Current Medications Butorphanol Tartrate (Stadol) 1 mg IVPUSH Q1H PRN PRN Reason: Pain Carboprost Tromethamine (Hemabate Ds) 250 mcg IM ASDIRECTED PRN PRN Reason: Post Hemorrhage Lactated Ringer's (Ringers, Lactated) 1,000 mls @ 150 mls/hr IV ASDIRECTED BRANT Last Admin: 11/17/18 19:30 Dose: 150 mls/hr Oxytocin/Sodium Chloride (Oxytocin 30 Unit/500 Ml-Ns) 30 unit in 500 mls @ 500 mls/hr IV TITRATE BRANT Tranexamic Acid 1,000 mg/ (Sodium Chloride) 110 mls @ 660 mls/hr IV ONETIME PRN PRN Reason: Bleeding Oxytocin/Sodium Chloride (Oxytocin 30 Unit/500 Ml-Ns) 30 unit in 500 mls @ 2 mls/hr IV TITRATE BRANT; Protocol Last Titration: 11/17/18 22:18 Dose: 0 munits/min, 0 mls/hr Lidocaine HCl (Xylocaine 1%) 50 ml INJECT ONETIME PRN PRN Reason: Laceration repair Methylergonovine Maleate (Methergine) 0.2 mg IM ASDIRECTED PRN PRN Reason: Post Hemorrhage Misoprostol (Cytotec) 200 mcg PO ONETIME PRN PRN Reason: Post Hemorrhage Nalbuphine HCl (Nubain) 10 mg IVPUSH Q1H PRN PRN Reason: Pain (severe 7-10) Sodium Chloride (Saline Flush) 10 ml FLUSH ASDIRECTED PRN PRN Reason: Keep Vein Open Sodium Chloride (Saline Flush) 2.5 ml FLUSH ASDIRECTED PRN PRN Reason: Keep Vein Open Sodium Chloride (Normal Saline) 10 ml IV ASDIRECTED PRN PRN Reason: IV Use Sterile Water (Sterile Water For Irrigation) 1,000 ml IRR ASDIRECTED PRN PRN Reason: delivery Terbutaline Sulfate (Brethine) 0.25 mg SUBCUT ASDIRECTED PRN PRN Reason: Tacysystole Discontinued Medications Fentanyl/Bupivacaine HCl (Djhblihq-Rrjea-Gd 2 Mcg/Ml-0.125%) Confirm Administered Dose 100 mls @ as directed .ROUTE .K-MED ONE Stop: 11/17/18 19:06 Last Admin: 11/17/18 21:34 Dose: Not Given - Exam General: Alert, Oriented, Cooperative, No Acute Distress Lungs: Normal Respiratory Effort GI/Abdominal Exam: Soft, Non-Tender, Hepatomegaly (Female) Exam: Normal Bimanual Exam, Vaginal Bleeding, Vaginal Tears. No: Cervical Lesions Back Exam: Normal Inspection, Full Range of Motion Extremities: Normal Inspection, Normal Range of Motion, Non-Tender, No Pedal Edema Skin: Warm, Dry, Intact Wound/Incisions: Healing Well Neurological: No New Focal Deficit, Normal Speech, Normal Tone, Strength Equal Bilateral, Sensation Intact Psy/Mental Status: Alert, Normal Affect, Normal Mood - Problem List & Annotations (1) Supervision of normal IUP (intrauterine ) in multigravida SNOMED Code(s): 564659127, 921073820, 314507968 Code(s): Z34.80 - ENCOUNTER FOR SUPRVSN OF NORMAL , UNSP TRIMESTER Status: Acute Current Visit: Yes Qualifiers: Trimester: third trimester Qualified Code(s): Z34.83 - Encounter for supervision of other normal , third trimester (2) (normal spontaneous vaginal delivery) SNOMED Code(s): 47076464, 051237422 Code(s): O80 - ENCOUNTER FOR FULL-TERM UNCOMPLICATED DELIVERY Status: Acute Priority: High Current Visit: Yes - Problem List Review Problem List Initiated/Reviewed/Updated: Yes - My Orders Last 24 Hours: My Active Orders 11/17/18 17:16 Patient Status [ADT] Routine Heart Tones [RC] CONTINUOUS Non Stress Test [RC] PER UNIT ROUTINE May Shower [RC] ASDIRECTED Notify Provider [RC] PRN Up ad Joan [RC] ASDIRECTED Vaginal Exam [RC] PRN Vital Signs [RC] PER UNIT ROUTINE Butorphanol [Stadol] 1 mg IVPUSH Q1H PRN Carboprost Tromethamine [Hemabate DS] 250 mcg IM ASDIRECTED PRN Lidocaine 1% [Xylocaine 1%] 50 ml INJECT ONETIME PRN Methylergonovine [Methergine] 0.2 mg IM ASDIRECTED PRN Nalbuphine [Nubain] 10 mg IVPUSH Q1H PRN Sodium Chloride 0.9% [Normal Saline] 10 ml IV ASDIRECTED PRN Sodium Chloride 0.9% [Saline Flush] 10 ml FLUSH ASDIRECTED PRN Sodium Chloride 0.9% [Saline Flush] 2.5 ml FLUSH ASDIRECTED PRN Tranexamic Acid [Cyklokapron] 1,000 mg Sodium Chloride 0.9% [Normal Saline] 100 ml IV ONETIME Water For Irrigation,Sterile [Sterile Water for Irrigation] 1,000 ml IRR ASDIRECTED PRN miSOPROStol [Cytotec] 200 mcg PO ONETIME PRN Scalp Electrode [WOMSER] Per Unit Routine Peripheral IV Insertion Adult [OM.PC] Routine Resuscitation Status Routine 11/17/18 17:30 Lactated Ringers [Ringers, Lactated] 1,000 ml IV ASDIRECTED Oxytocin/0.9 % Sodium Chloride [Oxytocin 30 Unit/500 ML-NS] 30 unit in 500 ml IV TITRATE 11/17/18 18:54 Bedrest Bathroom Privileges [RC] ASDIRECTED Communication Order [RC] ASDIRECTED Communication Order [RC] ASDIRECTED Notify Provider [RC] PRN Notify Provider [RC] STAT Vaginal Exam [RC] PRN Vital Signs [RC] PER UNIT ROUTINE Terbutaline [Brethine] 0.25 mg SUBCUT ASDIRECTED PRN 11/17/18 19:00 Oxytocin/0.9 % Sodium Chloride [Oxytocin 30 Unit/500 ML-NS] 30 unit in 500 ml IV TITRATE Medication Administration Instruction [OM.PC] Q3H - Plan Plan:: Labor A: 28 yo EDC 11/25/2018 39 2/7wks gestation active labor, O+, RI, GBS pos. P: Admit, pain mngt prn, may start pitocin prn if not progressing, anticipate . Dr Walker updated on pt status. Delivery A: of viable male, APGARS 8/9, Wt: 7lb 13oz. EBL 200cc, 2nd deg lac with repair. Stable P: Routine pp plan of care
[2018-11-17] MEDS ORDERED: Lanolin 100% Cream 7 GM Tube TOP PRN (23:05)
[2018-11-17] MEDS ORDERED: Acetaminophen 500 MG Tab PO PRN (23:05)
[2018-11-17] MEDS ORDERED: oxyCODONE 5 MG Tab PO PRN (23:05)
[2018-11-17] MEDS ORDERED: Docusate Sodium 100 MG Cap PO PRN (23:05)
[2018-11-17] MEDS ORDERED: Ibuprofen 400 MG Tab PO PRN (23:05)
[2018-11-17] MEDS ORDERED: Witch Hazel Medicated Pads 40/Jar TOP PRN (23:05)
[2018-11-17] MEDS ORDERED: Benzocaine/Menthol 20%-0.5% Spray 78 GM Cannister TOP PRN (23:05)
[2018-11-17] MEDS ORDERED: Bisacodyl 10 MG Supp RECTAL PRN (23:05)
[2018-11-18] MEDS: Ibuprofen 800 MG Tab PO PRN ×2 (05:54→14:39)
[2018-11-18] MEDS: Acetaminophen 500 MG Tab PO PRN ×2 (07:09→16:20)
--- NOTE | 2018-11-18 07:32 | PCM48HPAN ---
Post Anesthesia Note - EVALUATION WITHIN 48HRS OF ANESTHETIC Vital Signs in Normal Range: Yes Patient Participated in Evaluation: Yes Respiratory Function Stable: Yes Airway Patent: Yes Cardiovascular Function Stable: Yes Hydration Status Stable: Yes Pain Control Satisfactory: Yes Nausea and Vomiting Control Satisfactory: Yes Mental Status Recovered: Yes Vital Signs: Last Vital Signs Temp 98.6 F 11/18/18 04:47 Pulse 99 11/18/18 04:47 Resp 14 11/18/18 04:47 BP 123/79 11/18/18 04:47 Pulse Ox 97 11/18/18 04:47
[2018-11-19] MEDS: Acetaminophen 500 MG Tab PO PRN (03:54)
--- NOTE | 2018-11-19 10:42 | PCM.PNPP ---
- General Info Date of Service: 11/19/18 Functional Status: Reports: Pain Controlled - Review of Systems General: Reports: No Symptoms HEENT: Reports: No Symptoms Pulmonary: Reports: No Symptoms Cardiovascular: Reports: No Symptoms Gastrointestinal: Reports: No Symptoms Genitourinary: Reports: No Symptoms Musculoskeletal: Reports: No Symptoms Skin: Reports: No Symptoms Neurological: Reports: No Symptoms Psychiatric: Reports: No Symptoms - General Info Date of Service: 11/19/18 - Patient Data Vital Signs - Most Recent: Last Vital Signs Temp 36.1 C 11/19/18 07:40 Pulse 77 11/19/18 07:40 Resp 18 11/19/18 07:40 BP 130/76 11/19/18 07:40 Pulse Ox 99 11/19/18 07:40 Weight - Most Recent: 83.461 kg Med Orders - Current: Current Medications Acetaminophen (Tylenol Extra Strength) 500 mg PO Q4H PRN PRN Reason: Pain Acetaminophen (Tylenol Extra Strength) 1,000 mg PO Q4H PRN PRN Reason: Pain Last Admin: 11/19/18 03:54 Dose: 1,000 mg Benzocaine/Menthol (Dermoplast Pain Relief 20%-0.5% Stephens) 78 gm TOP ASDIRECTED PRN PRN Reason: Perineal Comfort Measure Last Admin: 11/18/18 00:40 Dose: 1 can Bisacodyl (Dulcolax) 10 mg RECTAL ONETIME PRN PRN Reason: Constipation Docusate Sodium (Colace) 100 mg PO BID PRN PRN Reason: Constipation Emollient Ointment (Lansinoh Hpa) 0 gm TOP ASDIRECTED PRN PRN Reason: Sore Nipples Ibuprofen (Motrin) 400 mg PO Q4H PRN PRN Reason: Pain Ibuprofen (Motrin) 800 mg PO Q6H PRN PRN Reason: Pain Last Admin: 11/18/18 14:39 Dose: 800 mg Oxycodone HCl (Oxycodone) 5 mg PO Q2H PRN PRN Reason: Pain Witch Patricia (Tucks) 1 pad TOP ASDIRECTED PRN PRN Reason: comfort care Last Admin: 11/18/18 00:40 Dose: 1 tub Discontinued Medications Butorphanol Tartrate (Stadol) 1 mg IVPUSH Q1H PRN PRN Reason: Pain Carboprost Tromethamine (Hemabate Ds) 250 mcg IM ASDIRECTED PRN PRN Reason: Post Hemorrhage Lactated Ringer's (Ringers, Lactated) 1,000 mls @ 150 mls/hr IV ASDIRECTED BRANT Last Admin: 11/17/18 19:30 Dose: 150 mls/hr Oxytocin/Sodium Chloride (Oxytocin 30 Unit/500 Ml-Ns) 30 unit in 500 mls @ 500 mls/hr IV TITRATE BRANT Tranexamic Acid 1,000 mg/ (Sodium Chloride) 110 mls @ 660 mls/hr IV ONETIME PRN PRN Reason: Bleeding Oxytocin/Sodium Chloride (Oxytocin 30 Unit/500 Ml-Ns) 30 unit in 500 mls @ 2 mls/hr IV TITRATE BRANT; Protocol Last Titration: 11/17/18 22:18 Dose: 0 munits/min, 0 mls/hr Fentanyl/Bupivacaine HCl (Rirfgfnm-Oognj-Sx 2 Mcg/Ml-0.125%) Confirm Administered Dose 100 mls @ as directed .ROUTE .[facility] [place]-MED ONE Stop: 11/17/18 19:06 Last Admin: 11/17/18 21:34 Dose: Not Given Lidocaine HCl (Xylocaine 1%) 50 ml INJECT ONETIME PRN PRN Reason: Laceration repair Methylergonovine Maleate (Methergine) 0.2 mg IM ASDIRECTED PRN PRN Reason: Post Hemorrhage Misoprostol (Cytotec) 200 mcg PO ONETIME PRN PRN Reason: Post Hemorrhage Nalbuphine HCl (Nubain) 10 mg IVPUSH Q1H PRN PRN Reason: Pain (severe 7-10) Sodium Chloride (Saline Flush) 10 ml FLUSH ASDIRECTED PRN PRN Reason: Keep Vein Open Sodium Chloride (Saline Flush) 2.5 ml FLUSH ASDIRECTED PRN PRN Reason: Keep Vein Open Sodium Chloride (Normal Saline) 10 ml IV ASDIRECTED PRN PRN Reason: IV Use Sterile Water (Sterile Water For Irrigation) 1,000 ml IRR ASDIRECTED PRN PRN Reason: delivery Terbutaline Sulfate (Brethine) 0.25 mg SUBCUT ASDIRECTED PRN PRN Reason: Tacysystole - Infant Interaction Infant Disposition, : in Room with Family Interaction: Holding Feeding: Attempted ; Nursed Fair/Poor Support Person: - Recovery Exam Fundal Tone: Firm Fundal Level: 2 Fingerbreadths Below Umbilicus Fundal Placement: Midline Lochia Amount: Scant Lochia Color: Rubra/Red Perineum Description: Intact, Minimal Bruising/Swelling Episiotomy/Laceration: None Bladder Status: Voiding Urinary Elimination: Voided - Exam General: Alert, Oriented HEENT: Pupils Equal Neck: Supple Lungs: Clear to Auscultation, Normal Respiratory Effort Cardiovascular: Regular Rate, Regular Rhythm GI/Abdominal Exam: Normal Bowel Sounds, Soft, Non-Tender, No Organomegaly, No Distention, No Abnormal Bruit, No Mass, Pelvis Stable Extremities: Normal Inspection, Normal Range of Motion, Non-Tender, No Pedal Edema, Normal Capillary Refill Skin: Warm, Dry, Intact Wound/Incisions: Healing Well Neurological: No New Focal Deficit Psy/Mental Status: Alert, Normal Affect, Normal Mood - Problem List Review Problem List Initiated/Reviewed/Updated: Yes - Assessment Assessment:: Status post normal spontaneous vaginal delivery patient is doing well we would send her home today - Plan Plan:: Labor A: 28 yo EDC 11/25/2018 39 2/7wks gestation active labor, O+, RI, GBS pos. P: Admit, pain mngt prn, may start pitocin prn if not progressing, anticipate . Dr Walker updated on pt status. Delivery A: of viable male, APGARS 8/9, Wt: 7lb 13oz. EBL 200cc, 2nd deg lac with repair. Stable P: Routine pp plan of care
== END 2018-11-19 12:35 | disposition home or self-care (01) | DRG 560 ==
LOC: MW.OB 15:46 → OBSVTOIN 22:35 → MW.OB 22:35
PROVIDERS: ADMIT Obstetrics & Gynecology; ATTEND Obstetrics & Gynecology
PROC: 10E0XZZ Delivery of Products of Conception, External Approach (ICD-10-PCS; principal; 2018-11-17)
PROC: 0KQM0ZZ Repair Perineum Muscle, Open Approach (ICD-10-PCS; 2018-11-17)
DX: O99.824 Streptococcus B carrier state complicating childbirth (principal); F41.9 Anxiety disorder, unspecified; F32.9 Major depressive disorder, single episode, unspecified; O99.344 Other mental disorders complicating childbirth; O70.1 Second degree perineal laceration during delivery; Z3A.39 39 weeks gestation of pregnancy; Z37.0 Single live birth
CPT/HCPCS: 36415; 51702; 59025; 59409; 85027; 86850; 86900; 86901; A9270-GY; J2590; J7120

== ENCOUNTER 2021-02-05 22:11 | Emergency (ER) | payer BC ==
[2021-02-05] MEDS ORDERED: Clotrimazole 1% Crm 30 GM Tube TOP STA (23:16)
[2021-02-05] MEDS ORDERED: Cephalexin 500 MG Cap PO ONE (23:16)
[2021-02-05] MEDS ORDERED: Betamethasone Dipropionate/Clotrimazole 0.05-1% Crm 15 GM Tube TOP STA (23:16)
--- NOTE | 2021-02-05 23:56 | EDM.PDOC ---
ED HPI GENERAL MEDICAL PROBLEM - General Chief Complaint: Genitourinary Problem Stated Complaint: PERSONAL ISSUE Time Seen by Provider: 02/05/21 22:28 - History of Present Illness INITIAL COMMENTS - FREE TEXT/NARRATIVE: CHIEF COMPLAINT(S): Vaginal itching and pain HISTORY OF PRESENT ILLNESS: This is a 30-year-old woman with a recent diagnosis of urinary tract infection on antibiotics and recent yeast infection who comes to the emergency department with a chief complaint of vaginal itching and pain. The patient states that for the last 7 days she has been experiencing itching, pain, and swelling of her labia and vagina. She states that it is so severe that anytime she pees it queen. She denies any history of HSV. She states that she is tried Diflucan twice however it does not seem to help. In addition to this she has tried Azo, Monistat also which have not helped. She is experiencing some swollen glands in her groin also. She denies any fever but states that she does have some mild lower back pain. She denies any nausea or vomiting. She has not yet tried anything for pain relief. She states that she is taking nitrofurantoin. She currently rates her pain as 6 out of 10 and located on her vagina. There is no radiation of this pain. There are no relieving factors and urinating seems to worsen the pain. REVIEW OF SYSTEMS: Constitutional: Denies fever, chills. Eyes: Denies eye pain Ears, Nose, Mouth, & Throat: Denies earache Cardiovascular: Denies chest pain Respiratory: Denies shortness of breath Gastrointestinal: Denies abdominal pain, nausea, vomiting, diarrhea, hematochezia. Genitourinary: Positive for burning with urination, vaginal pain and itching. Skin:Denies a rash MSK: Denies joint pain Neurological: Denies blurred vision Psychiatric: Denies depression PAST MEDICAL HISTORY: As per history of present illness and as reviewed below otherwise noncontributory. SURGICAL HISTORY: As per history of present illness and as reviewed below otherwise noncontributory. SOCIAL HISTORY: As per history of present illness and as reviewed below otherwise noncontributory. FAMILY HISTORY: As per history of present illness and as reviewed below otherwise noncontributory. EXAMINATION OF ORGAN SYSTEMS/BODY AREAS: Constitutional: Blood pressure was 116/77, heart rate 94, respiratory rate 16 with an oxygen saturation of 100% on room air. Temperature 36.5 General: Well-appearing woman who is in no acute distress Psychiatric: Appropriate mood and affect. Eyes: No scleral icterus or conjunctival erythema ENMT: Moist mucous membranes. No pharyngeal erythema Cardiovascular: Regular, rate, and rhythm. No gallops, murmurs, or rubs. Bilateral upper extremity pulses symmetric and intact. No peripheral edema. No JVD. Respiratory: Lungs clear to auscultation bilaterally. No wheezes, rales, or rhonchi. Gastrointestinal: Soft, non-tender, non-distended. Normoactive bowel sounds Genitourinary: No suprapubic tenderness pelvic examination performed with RN systems programmer analyst in presence. The patient has evidence of vaginal yeast infection on her labia and introitus. There is no evidence of abscess, purulent drainage. This area is severely tender to palpation. There does not appear to be any HSV lesions. There is some erythema of the labia confined to the labia. This area is warm to touch. Musculoskeletal: Normal range of motion. Skin: No lesions or abrasions. Neurological: Alert, GCS 15 MEDICAL DECISION MAKING AND COURSE IN THE ED WITH INTERPRETATION/REVIEW OF DIAGNOSTIC STUDIES: This is a 30-year-old woman with a recent diagnosis of urinary tract infection and yeast vaginitis who comes to the emergency department with vulvovaginal candidiasis that appears to be severe. At this time I did discuss topical creams. We will provide the patient with clotrimazole betamethasone cream that she can use for the next 3 days and then clotrimazole cream for the next 14. I did discuss with her that I would like to obtain a repeat urinalysis. She was amenable to this plan. Either way I would like to switch the patient to Keflex to cover for possible cellulitis and the urinary tract infection. She was amenable to this plan. We will provide the patient with Keflex by mouth. Urinalysis did reveal positive nitrate, leukocyte esterase with 2+ bacteria. Urine culture was sent. I did discuss strict return precautions with the patient. She was amenable to discharge and had no further questions DISPOSITION: The patient was discharged home in stable condition. The patient will follow up with primary care physician in 3 to 5 days CONDITION: Fair PROCEDURES: None FINAL IMPRESSION(S)/DIAGNOSES: 1. Acute urinary tract infection 2. Acute vulvovaginal candidiasis. 3. Acute possible vulvar cellulitis Deny Burns M.D. Vaginal Pain Score (Numeric/FACES): 6 - Related Data Allergies Allergy/AdvReac Type Severity Reaction Status Date / Time sulfamethoxazole Allergy Rash Verified 02/05/21 22:21 [From Bactrim] trimethoprim [From Bactrim] Allergy Rash Verified 02/05/21 22:21 Home Meds: Home Meds ARIPiprazole [Abilify] 5 mg PO DAILY 10/25/17 [History] Clotrimazole [Clotrimazole 1%] 15 gm .XX DAILY #15 gm 02/05/21 [Rx] Fluconazole [Diflucan] 150 mg PO ONETIME #1 tab 02/05/21 [Rx] Nitrofurantoin 100 mg PO DAILY 02/05/21 [History] cephALEXin [Keflex] 500 mg PO Q6H #19 cap 02/05/21 [Rx] Past Medical History HEENT History: Reports: Other (See Below) Other HEENT History: wears glasses/contacts Cardiovascular History: Reports: None Respiratory History: Reports: None Gastrointestinal History: Reports: GERD Genitourinary History: Reports: None 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: Musculoskeletal History: Reports: None Neurological History: Reports: None Psychiatric History: Reports: Anxiety, Bipolar, Depression Endocrine/Metabolic History: Reports: None Hematologic History: Reports: Anemia Immunologic History: Reports: None Oncologic (Cancer) History: Reports: None Dermatologic History: Reports: None - Infectious Disease History Infectious Disease History: Reports: Chicken Pox - Past Surgical History Head Surgeries/Procedures: Reports: None HEENT Surgical History: Reports: Oral Surgery Other HEENT Surgeries/Procedures: wisdom teeth 2011 Female Surgical History: Reports: Breast Implant Social & Family History - Family History Family Medical History: No Pertinent Family History - Caffeine Use Caffeine Use: Reports: Coffee - Recreational Drug Use Recreational Drug Use: No ED ROS GENERAL - Review of Systems Review Of Systems: See Below ED EXAM, GENERAL - Physical Exam Exam: See Below Course - Vital Signs Last Recorded V/S: Last Vital Signs Temp 36.5 C 02/05/21 22:22 Pulse 80 02/06/21 00:34 Resp 16 02/05/21 23:34 BP 129/78 02/06/21 00:34 Pulse Ox 99 02/06/21 00:34 - Orders/Labs/Meds Labs: Laboratory Tests 02/05/21 02/05/21 Range/Units 22:23 22:23 Urine Color YELLOW Urine Appearance SLT CLOUDY Urine pH 6.0 (5.0-8.0) Ur Specific [place] 1.025 (1.001-1.035) Urine Protein TRACE H (NEGATIVE) mg/dL Urine Glucose (UA) NEGATIVE (NEGATIVE) mg/dL Urine Ketones NEGATIVE (NEGATIVE) mg/dL Urine Occult Blood NEGATIVE (NEGATIVE) Urine Nitrite POSITIVE H (NEGATIVE) Urine Bilirubin NEGATIVE (NEGATIVE) Urine Urobilinogen 1.0 (<2.0) EU/dL Ur Leukocyte Esterase TRACE H (NEGATIVE) Urine RBC 0-2 (0-2/HPF) Urine WBC 3-6 (0-5/HPF) Ur Epithelial Cells FEW (NONE-FEW) Amorphous Sediment LIGHT (NEGATIVE) Urine Bacteria 2+ H (NEGATIVE) Urine Mucus MODERATE (NONE-MOD) Urine HCG, Qual NEGATIVE (NEGATIVE) Meds: Medications Discontinued Medications Generic Name Dose Route Start Last Admin Trade Name Bhupendraq PRN Reason Stop Dose Admin Betamethasone/Clotrimazole 1 gm 02/05/21 23:16 02/05/21 23:52 Betamethasone Dipropionate/Clotrimazole 0.05-1% Crm 15 Gm Tube TOP 02/05/21 23:17 1 gm ONETIME STA Administration Cephalexin 500 mg 02/05/21 23:16 02/05/21 23:32 Cephalexin 500 Mg Cap PO 02/05/21 23:17 500 mg ONETIME ONE Administration Clotrimazole 1 gm 02/05/21 23:16 02/05/21 23:54 Clotrimazole 1% Crm 30 Gm Tube TOP 02/05/21 23:17 Not Given ONETIME STA Departure - Departure Time of Disposition: 23:54 Disposition: Home, Self-Care 01 Condition: Fair Clinical Impression: UTI, Urinary tract infectious disease, Vulvovaginal candidiasis - Discharge Information *PRESCRIPTION DRUG MONITORING PROGRAM REVIEWED*: No *COPY OF PRESCRIPTION DRUG MONITORING REPORT IN PATIENT AGATHA: No Prescriptions: Clotrimazole [Clotrimazole 1%] 15 gm .XX DAILY #15 gm Fluconazole [Diflucan] 150 mg PO ONETIME #1 tab cephALEXin [Keflex] 500 mg PO Q6H #19 cap Instructions: Vaginal Yeast Infection, Adult, Urinary Tract Infection, Adult, [id number] Referrals: PCP,None [Primary Care Provider] - Forms: ED Department Discharge Additional Instructions: You were evaluated today on an emergent basis. At this time I do believe that you are expensing pain secondary to a skin infection and a yeast infection. I recommend the following Keflex 500 mg 4 times a day until the antibiotics are gone Clotrimazole, betamethasone cream daily for the next 2 to 3 days Clotrimazole 1% cream daily for the following 7 to 10 days Diflucan on February 06, 2021 1 tablet. Please return to the emergency department if you have any worsening symptoms. Otherwise follow-up with your primary care physician in 3 to 5 days. [facility] - Primary Care [address] [place], [place] [id number] [place] [address] The patient is informed of any results of their evaluation and diagnostic workup and all questions are answered. They are given discharge instructions and return precautions. The patient is stable for discharge. The patient states they understand and agree with the plan and that they will return if their symptoms get worse or if they have any new concerns. The following information is given to patients seen in the emergency department who are being discharged to home. This information is to outline your options for follow-up care. We provide all patients seen in our emergency department with a follow-up referral. The need for follow-up, as well as the timing and circumstances, are variable depending upon the specifics of your emergency department visit. If you don't have a primary care physician on staff, we will provide you with a referral. We always advise you to contact your personal physician following an emergency department visit to inform them of the circumstance of the visit and for follow-up with them and/or the need for any referrals to a consulting specialist. The emergency department will also refer you to a specialist when appropriate. This referral assures that you have the opportunity for follow-up care with a specialist. All of these measure are taken in an effort to provide you with optimal care, which includes your follow-up. Under all circumstances we always encourage you to contact your private physician who remains a resource for coordinating your care. When calling for follow-up care, please make the office aware that this follow-up is from your recent emergency room visit. If for any reason you are refused follow-up, please contact the [facility] Emergency Department at and asked to speak to the emergency department charge nurse.
== END 2021-02-06 00:45 | disposition home or self-care (01) ==
LOC: MW.ED 22:11
DX: B37.3 Candidiasis of vulva and vagina (principal); N39.0 Urinary tract infection, site not specified; Z88.2 Allergy status to sulfonamides; Z88.1 Allergy status to other antibiotic agents
CPT/HCPCS: 81001; 81025; 99283; A9270

== ENCOUNTER 2023-02-27 13:00 | Emergency (ER) | payer BC, OTHER ==
[2023-02-27] MEDS ORDERED: Famotidine 20 MG Tab PO ONE (14:25)
[2023-02-27] MEDS ORDERED: Cetirizine 10 MG Tab PO ONE (14:25)
== END 2023-02-27 14:47 | disposition home or self-care (01) ==
LOC: MW.ED 13:00
DX: Z00.00 Encounter for general adult medical examination without abnormal findings (principal); Z88.2 Allergy status to sulfonamides; Z79.899 Other long term (current) drug therapy
CPT/HCPCS: 99283; A9270

== ENCOUNTER 2023-02-28 17:10 | Emergency (ER) | payer BC ==
[2023-02-28 19:06] LABS: CORONAVIRUS COVID-19 NAA NEGATIVE (NEGATIVE); INFLUENZA A NAA NEGATIVE (NEGATIVE); INFLUENZA B NAA NEGATIVE (NEGATIVE); RESPIRATORY SYNCYTIAL VIR NAA NEGATIVE (NEGATIVE)
[2023-02-28] MEDS ORDERED: Albuterol/Ipratropium 3.0-0.5 MG/3 ML Neb Soln NEB ONE (19:37)
[2023-02-28] MEDS ORDERED: Doxycycline 100 MG Cap PO ONE (21:16)
== END 2023-02-28 21:30 | disposition home or self-care (01) ==
LOC: MW.ED 17:10
DX: J18.9 Pneumonia, unspecified organism (principal); K21.9 Gastro-esophageal reflux disease without esophagitis; Z79.899 Other long term (current) drug therapy; Z88.2 Allergy status to sulfonamides; F17.210 Nicotine dependence, cigarettes, uncomplicated; Z20.822 Contact with and (suspected) exposure to COVID-19
CPT/HCPCS: 0241U; 71046; 99285; A9270; J7620-GY

== ENCOUNTER 2023-06-12 02:49 | Emergency (ER) | payer BC, OTHER ==
[2023-06-12] MEDS: Sodium Chloride 0.9% 2.5 ML Syringe FLUSH PRN (03:16)
[2023-06-12] MEDS: Sodium Chloride 0.9% 10 ML Syringe FLUSH PRN (03:17)
[2023-06-12] MEDS: Ondansetron 4 MG/2 ML SDV IVPUSH ONE (03:19)
[2023-06-12] MEDS: Lactated Ringers 1,000 ML IV ONE (03:19)
[2023-06-12 03:21] LABS: BASOPHILS ABSOLUTE AUTO 0.03 K/uL (0.00-0.20); BASOPHILS PERCENT AUTO 0.3 % (0.0-1.0); EOSINOPHILS ABSOLUTE AUTO 0.03 K/uL (0.00-0.45); EOSINOPHILS PERCENT AUTO 0.3 % (0.0-6.0); HEMATOCRIT 41.8 % (37.0-47.0); HEMOGLOBIN 13.6 g/dL (12.0-16.0); IMMATURE GRAN ABSOLUTE AUTO 0.02 K/uL (0.00-0.05); IMMATURE GRAN PERCENT AUTO 0.2 % (0.0-0.4); LYMPHOCYTES ABSOLUTE AUTO 3.71 K/uL (1.00-4.80); LYMPHOCYTES PERCENT AUTO 35.3 % (24.0-44.0); MEAN CORPUSCULAR HEMOGLOBIN 27.5 pg (28.0-32.0); MEAN CORPUSCULAR HGB CONC 32.5 g/dL (32.0-36.0); MEAN CORPUSCULAR VOLUME 84.6 fL (83.0-99.0); MEAN PLATELET VOLUME 9.3 fL (9.4-12.3); MONOCYTES ABSOLUTE AUTO 0.79 K/uL (0.00-0.80); MONOCYTES PERCENT AUTO 7.5 % (0.0-8.0); NEUTROPHILS ABSOLUTE AUTO 5.93 K/uL (1.80-7.70); NEUTROPHILS PERCENT AUTO 56.4 % (41.0-71.0); PLATELET COUNT,PLT 381 K/uL (150-400); RED BLOOD CELL COUNT 4.94 M/uL (4.10-5.30); WHITE BLOOD CELL COUNT,WBC 10.51 K/uL (3.9-11.3)
[2023-06-12 03:35] LABS: D-DIMER QUANTITATIVE 0.41 mg/L FEU (0.00-0.50); INR 0.97 (0.86-1.11); PTT,PARTIAL THROMBOPLSTIN TIME 26.1 SEC (23.9-30.7)
[2023-06-12 03:44] LABS: GLUCOSE,URINE NEGATIVE (NEGATIVE); KETONES,URINE NEGATIVE (NEGATIVE); LEUKOCYTE ESTERASE,URINE NEGATIVE (NEGATIVE); NITRITE,URINE NEGATIVE (NEGATIVE); OCCULT BLOOD,URINE NEGATIVE (NEGATIVE); PH,URINE 5.5 (5.0-8.0); PROTEIN,URINE TRACE mg/dL (NEGATIVE); UROBILINOGEN,URINE 0.2 EU/dL (<2.0)
[2023-06-12 03:57] LABS: ALANINE AMINOTRANSFERASE,ALT 62 IU/L (14-63); ALBUMIN 3.9 g/dL (3.4-5.0); ALKALINE PHOSPHATASE 90 U/L (46-116); ASPARTATE AMNIOTRANSFERASE,AST 52 IU/L (15-37); BILIRUBIN TOTAL 0.4 mg/dL (0.2-1.0); BLOOD UREA NITROGEN,BUN 11 mg/dL (7.0-18.0); CALCIUM 9.9 mg/dL (8.5-10.1); CARBON DIOXIDE,CO2 25.9 mmol/L (21.0-32.0); CHLORIDE,CL 98 mmol/L (98-107); CREATININE 0.9 mg/dL (0.6-1.0); GLUCOSE RANDOM 96 mg/dL (74-106); LIPASE 36 U/L (16-77); POTASSIUM,K 4.1 mmol/L (3.5-5.1); PROTEIN TOTAL,TP 8.5 g/dL (6.4-8.2); SODIUM,NA 134 mmol/L (136-145); TSH ULTRASENSITIVE 4.88 uIU/mL (0.36-3.74)
[2023-06-12 03:59] LABS: A/G RATIO 0.9 (0.9-1.6); ESTIMATED GFR 88 mL/min (>60)
[2023-06-12 04:01] LABS: BILIRUBIN,URINE SMALL (NEGATIVE)
[2023-06-12 04:04] LABS: APPEARANCE,URINE HAZY; BACTERIA,URINE FEW (NEGATIVE); CALCIUM OXALATE CRYSTALS,URINE FEW (NEGATIVE); COLOR,URINE YELLOW; EPITHELIAL CELLS,URINE FEW (NONE-FEW); MUCUS,URINE MODERATE (NONE-MOD); RBC,URINE 0-2 (0-2/HPF)
[2023-06-12 04:16] LABS: T4 FREE 0.95 ng/dL (0.76-1.46)
[2023-06-12] MEDS: Iopamidol 755 MG/ML 500 ML Multipack Bottle IVPUSH STA (04:57)
== END 2023-06-12 06:41 | disposition home or self-care (01) ==
LOC: MW.ED 02:49
DX: I10 Essential (primary) hypertension (principal); R00.1 Bradycardia, unspecified; R10.9 Unspecified abdominal pain; Z88.2 Allergy status to sulfonamides; Z88.8 Allergy status to other drugs, medicaments and biological substances; Z79.899 Other long term (current) drug therapy; Z75.8 Other problems related to medical facilities and other health care
CPT/HCPCS: 36415; 70450; 74177; 80053; 81001; 82947; 83690; 84439; 84443; 84484; 84703; 85025; 85379; 85610; 85730; 93005; 96361; 96374; 99284; J2405; J3490; J7120; Q9967; 93010

== ENCOUNTER 2023-12-31 08:58 | Emergency (ER) | payer BC ==
[2023-12-31] MEDS: Benzonatate 100 MG Cap PO ONE (09:35)
== END 2023-12-31 10:57 | disposition home or self-care (01) ==
LOC: MW.ED 08:58
DX: R05.9 Cough, unspecified (principal); K21.9 Gastro-esophageal reflux disease without esophagitis; Z79.899 Other long term (current) drug therapy; Z88.2 Allergy status to sulfonamides; Z75.8 Other problems related to medical facilities and other health care
CPT/HCPCS: 99283; A9270

== ENCOUNTER 2024-02-04 22:47 | Emergency (ER) | payer SELFPAY ==
[2024-02-05] MEDS: Ibuprofen 800 MG Tab PO ONE (00:07)
[2024-02-05] MEDS: Acetaminophen 500 MG Tab PO ONE (00:08)
== END 2024-02-05 01:41 | disposition home or self-care (01) ==
LOC: MW.ED 22:47
DX: S99.921A Unspecified injury of right foot, initial encounter (principal); Z75.8 Other problems related to medical facilities and other health care; Z88.2 Allergy status to sulfonamides; Z88.8 Allergy status to other drugs, medicaments and biological substances; X50.9XXA Other and unspecified overexertion or strenuous movements or postures, initial encounter
CPT/HCPCS: 73610; 73630; 99283; A9270

== ENCOUNTER 2024-10-23 22:50 | Emergency (ER) | payer BC | END 2024-10-24 01:36 | disposition home or self-care (01) | LOC: MW.ED 22:50 | DX: M79.671 Pain in right foot (principal); K21.9 Gastro-esophageal reflux disease without esophagitis; Z88.2 Allergy status to sulfonamides; Z88.8 Allergy status to other drugs, medicaments and biological substances; Z79.899 Other long term (current) drug therapy | CPT/HCPCS: 73630-26-RT; 73630-RT; 99282; 99283 ==